=== PATIENT | male | born 1960 | race American Indian/Alaskan Native ===

== ENCOUNTER 2017-11-23 14:56 | Emergency (ER) | payer SELFPAY ==
[2017-11-23 15:06] VITALS: BP 159/90
--- NOTE | 2017-11-23 16:14 | Emergency Department Report ---
HPI - General Chief Complaint: Eye Problems Time Seen by Provider: 11/23/17 16:10 - HPI HPI: 57-year-old male presents with right eye cloudiness of the past 3 days. Patient 's history include a blood pressure but he has not been taking any medications. Patient denies any chest pain, shortness of breath, nausea, vomiting. There is no longer having any cloudiness at this point. ED Past Medical Hx - Past Medical History Previous Medical History?: No Hx Hypertension: No Hx CVA: No Hx Heart Attack/AMI: No - Surgical History Past Surgical History?: No - Social History Smoking Status: Current Every Day Smoker Substance Use Type: None - Medications Home Medications: Home Medications Medication Instructions Recorded Confirmed Last Taken Type amLODIPine [Norvasc] 10 mg PO DAILY #30 tab 11/23/17 Unknown Rx ED Review of Systems ROS: Stated complaint: BLURRED VISON Other details as noted in HPI Comment: All other systems reviewed and negative Eyes: other (cloundiness). denies: eye pain, eye discharge Cardiovascular: denies: chest pain, palpitations Physical Exam - Physical Exam Vital Signs: Vital Signs 11/23/17 15:03 Temperature 97.9 F Pulse Rate 78 Respiratory 18 Rate Blood Pressure 159/90 O2 Sat by Pulse 100 Oximetry Physical Exam: - Physical Exam Physical Exam: - General Limitations: No Limitations General appearance: alert, in no apparent distress. - Head Head exam: Present: atraumatic, normocephalic - Eye Eye exam: Present: Small cataracts bilateral eye - ENT ENT exam: Present: mucous membranes moist - Neck Neck exam: Present: normal inspection - Respiratory Respiratory exam: Present: normal lung sounds bilaterally. Absent: respiratory distress - Cardiovascular Cardiovascular Exam: Present: normal rhythm. Absent: systolic murmur, diastolic murmur, rubs, gallop - GI/Abdominal GI/Abdominal exam: Present: soft, normal bowel sounds - Extremities Exam Extremities exam: Present: normal inspection - Back Exam Back exam: Present: normal inspection - Neurological Exam Neurological exam: Present: alert, oriented X3 - Psychiatric Psychiatric exam: normal affect and mood - Skin Skin exam: Present: warm, dry, intact, normal color. Absent: rash ED Course Vital Signs 11/23/17 15:03 Temperature 97.9 F Pulse Rate 78 Respiratory 18 Rate Blood Pressure 159/90 O2 Sat by Pulse 100 Oximetry Critical care attestation.: If time is entered above; I have spent that time in minutes in the direct care of this critically ill patient, excluding procedure time. ED Disposition Clinical Impression: High blood pressure Qualifiers: Hypertension type: essential hypertension Qualified Code(s): I10 - Essential ( primary) hypertension Cataracts, both eyes Qualifiers: Cataract type: age-related Disposition: - TO HOME OR SELFCARE Is pt being admited?: No Does the pt Need Aspirin: No Condition: Stable Instructions: Cataracts (ED), Hypertension (ED) Prescriptions: amLODIPine [Norvasc] 10 mg PO DAILY #30 tab Referrals: PRIMARY CAREMD [Primary Care Provider] - 3-5 Days RORY UMANA MD [Staff Physician] - 3-5 Days
== END 2017-11-23 16:32 | disposition home or self-care (01) ==
LOC: ED 14:56
DX: H57.11 Ocular pain, right eye (principal); I10 Essential (primary) hypertension; F17.200 Nicotine dependence, unspecified, uncomplicated
CPT/HCPCS: 99282

== ENCOUNTER 2019-03-27 21:14 | Emergency (ER) | payer SELFPAY ==
--- NOTE | 2019-03-27 22:37 | Event Note ---
ED Screening Note Date of service: 03/27/19 Time: 22:35 ED Screening Note: 58 y o male presents with back pain,abd pain with dark urine x 4 days This initial assessment/diagnostic orders/clinical plan/treatment(s) is/are subject to change based on patients health status, clinical progression and re- assessment by fellow clinical providers in the ED. Further treatment and workup at subsequent clinical providers discretion. Patient/guardian urged not to elope from the ED as their condition may be serious if not clinically assessed and managed. Initial orders include: labs,ct abd
[2019-03-27 23:07] LABS: Basophils # (Auto) 0.1 K/mm3 (0.0-0.1); Basophils % (Auto) 1.2 % (0.0-1.8); Eosinophils # (Auto) 0.4 K/mm3 (0.0-0.4); Eosinophils % (Auto) 6.3 % (0.0-4.3); Hematocrit 41.3 % (35.5-45.6); Hemoglobin 14.1 gm/dl (11.8-15.2); Lymphocytes # (Auto) 2.7 K/mm3 (1.2-5.4); Lymphocytes % (Auto) 40.7 % (13.4-35.0); Mean Corpuscular HGB Conc 34 % (32-34); Mean Corpuscular Volume 87 fl (84-94); Monocytes # (Auto) 0.7 K/mm3 (0.0-0.8); Monocytes % (Auto) 9.7 % (0.0-7.3); Platelet Count 232 K/mm3 (140-440); Red Blood Count 4.73 M/mm3 (3.65-5.03)
[2019-03-27 23:17] LABS: INR 0.97 (0.87-1.13)
[2019-03-27 23:31] LABS: Alanine Aminotransferase 469 units/L (7-56); Albumin 4.2 g/dL (3.9-5); BUN/Creatinine Ratio 13; Bilirubin,Direct 7.3 mg/dL (0-0.2); Blood Urea Nitrogen 10 mg/dL (9-20); Calcium 9.8 mg/dL (8.4-10.2); Hemolysis Index 4
--- NOTE | 2019-03-27 23:50 | Emergency Department Report ---
ED Abdominal Pain HPI - General Chief Complaint: Abdominal Pain Stated Complaint: ABD PAIN Time Seen by Provider: 03/27/19 22:34 Source: patient Mode of arrival: Ambulatory Limitations: No Limitations - History of Present Illness Initial Comments: Mr. Lopez is a 58 yo male without significant past medical hx who presents with bilateral lower abdominal pain and dark urine for 2 weeks. Gradual onset of symptoms. No history of alcohol use. No history of hepatitis. He has noticed that is eyes have been yellow for the past 2 weeks. He works as a sprinkler truck driver. NO hx of chronic tylenol use. He has used Tylenol and Ibuprofen for pain over the last few days. Denies chronic abd pain or diarrhea. MD Complaint: abdominal pain -: Gradual, week(s) (2) Location: LLQ, RLQ Radiation: none Severity scale (0 -10): 10 Quality: aching Consistency: constant Improves With: nothing Worsens With: nothing Associated Symptoms: other (dark urine and jaundice) - Related Data Previous Rx's Medication Instructions Recorded Last Taken Type amLODIPine [Norvasc] 10 mg PO DAILY #30 tab 11/23/17 Unknown Rx Allergies Allergy/AdvReac Type Severity Reaction Status Date / Time No Known Allergies Allergy Unverified 11/23/17 15:03 ED Review of Systems ROS: Stated complaint: ABD PAIN Other details as noted in HPI Comment: All other systems reviewed and negative Constitutional: denies: fever, malaise Gastrointestinal: abdominal pain Genitourinary: other (dark urine) ED Past Medical Hx - Past Medical History Previous Medical History?: Yes Hx Hypertension: Yes Hx CVA: No Hx Heart Attack/AMI: No - Surgical History Past Surgical History?: No - Social History Smoking Status: Current Every Day Smoker Substance Use Type: None - Medications Home Medications: Home Medications Medication Instructions Recorded Confirmed Last Taken Type amLODIPine [Norvasc] 10 mg PO DAILY #30 tab 11/23/17 Unknown Rx ED Physical Exam - General Limitations: No Limitations General appearance: alert, in no apparent distress, other (alert no acute distress) - Head Head exam: Present: atraumatic, normocephalic - Eye Eye exam: Present: scleral icterus. Absent: conjunctival injection - ENT ENT exam: Present: mucous membranes moist - Neck Neck exam: Present: normal inspection, full ROM - Respiratory Respiratory exam: Present: normal lung sounds bilaterally. Absent: respiratory distress, wheezes, rales, rhonchi - Cardiovascular Cardiovascular Exam: Present: regular rate, normal rhythm, normal heart sounds. Absent: systolic murmur, diastolic murmur, rubs, gallop - GI/Abdominal GI/Abdominal exam: Present: soft, normal bowel sounds. Absent: distended, tenderness, guarding, rebound - Rectal Rectal exam: Present: deferred - Extremities Exam Extremities exam: Present: normal inspection - Back Exam Back exam: Present: normal inspection - Neurological Exam Neurological exam: Present: alert, oriented X3 - Psychiatric Psychiatric exam: Present: normal affect, normal mood - Skin Skin exam: Present: warm, dry, intact, normal color. Absent: rash ED Course Vital Signs 03/27/19 03/27/19 03/27/19 21:50 22:35 23:55 Temperature 98.6 F 98.6 F Pulse Rate 61 61 57 L Respiratory 20 20 15 Rate Blood Pressure 157/79 Blood Pressure 157/79 167/85 [Right] O2 Sat by Pulse 100 100 97 Oximetry 03/27/19 23:56 Temperature Pulse Rate Respiratory 15 Rate Blood Pressure Blood Pressure [Right] O2 Sat by Pulse 97 Oximetry ED Medical Decision Making - Lab Data Result diagrams: 03/27/19 22:40 03/27/19 22:40 Laboratory Results - last 24 hr 03/27/19 03/27/19 03/27/19 22:40 22:40 22:40 WBC 6.7 RBC 4.73 Hgb 14.1 Hct 41.3 MCV 87 MCH 30 MCHC 34 RDW 15.0 Plt Count 232 Lymph % (Auto) 40.7 H [place] % (Auto) 9.7 H Eos % (Auto) 6.3 H Baso % (Auto) 1.2 Lymph # 2.7 [place] # 0.7 Eos # 0.4 Baso # 0.1 Seg Neutrophils % 42.1 Seg Neutrophils # 2.8 PT 12.6 INR 0.97 Sodium 141 Potassium 4.2 Chloride 101.6 Carbon Dioxide 26 Anion Gap 18 BUN 10 Creatinine 0.8 Estimated GFR > 60 BUN/Creatinine Ratio 13 Glucose 92 Calcium 9.8 Total Bilirubin 8.80 H Direct Bilirubin 7.3 H Indirect Bilirubin 1.5 AST 238 H ALT 469 H Alkaline Phosphatase 244 H Total Protein 7.8 Albumin 4.2 Albumin/Globulin Ratio 1.2 Amylase 50 Lipase 31 Urine Bilirubin Urine RBC (Auto) 03/27/19 23:36 WBC RBC Hgb Hct MCV MCH MCHC RDW Plt Count Lymph % (Auto) [place] % (Auto) Eos % (Auto) Baso % (Auto) Lymph # [place] # Eos # Baso # Seg Neutrophils % Seg Neutrophils # PT INR Sodium Potassium Chloride Carbon Dioxide Anion Gap BUN Creatinine Estimated GFR BUN/Creatinine Ratio Glucose Calcium Total Bilirubin Direct Bilirubin Indirect Bilirubin AST ALT Alkaline Phosphatase Total Protein Albumin Albumin/Globulin Ratio Amylase Lipase Urine Bilirubin Mod Urine RBC (Auto) 3.0 - Radiology Data Radiology results: report reviewed CT abdomen and pelvis:Mild colitis involving the right and proximal transverse colon, unexplained biliary dilatation nephrolithiasis, left kidney cyst - Medical Decision Making Mr. Lopez presents with lower abdominal pain, dark urine and jaundice. W/U reveals direct hyperbilirubinemia. CT revealed biliary dilatation and colitis. Concern for biliary obstruction such as malignancy or cholelithiasis. With finding of colitis, consider inflammatory bowel disease such ulcerative colitis with associated PSC which is less likely at this age. DDX: alcoholic liver disease, viral infection, drug induced I have consulted GI Dr. Tariq who recommended MRCP. Admitted to hospitalist service. Critical care attestation.: If time is entered above; I have spent that time in minutes in the direct care of this critically ill patient, excluding procedure time. ED Disposition Clinical Impression: Jaundice, Colitis, Abdominal pain Disposition: OP ADMIT IP TO THIS HOSP Is pt being admited?: Yes Does the pt Need Aspirin: No Condition: Stable
--- NOTE | 2019-03-28 00:02 | Cat Scan Report ---
CT ABDOMEN AND PELVIS WITHOUT CONTRAST INDICATION: MAIN: Abdominal Pain. BACK PAIN. DARK URINE. CONTRAST: Without IV COMPARISON: None available. All CT scans at this location are performed using CT dose reduction for ALARA by means of automated e xposure control. FINDINGS: Lung bases are clear. No pneumoperitoneum is seen. No obvious gallstones are noted. Intrahe patic biliary dilatation is seen with the common hepatic duct and upper common bile duct measuring up to 8 mm. Slight intrahepatic dilatation is noted. No pancreatic mass is seen. No intraductal calculu s is obvious. Bilateral water density renal cysts are noted, greater on the right. In the mid left ki dney posteriorly a small hyperdense lesion is seen measuring only 5 mm which probably is a minimal hy perdense cyst. Minimal left nephrolithiasis is seen with a 1 mm calculus in the midportion. No eviden ce of obstruction is seen. No evidence of bowel obstruction is noted. The wall of the right colon thr ough the proximal transverse colon including the hepatic flexure shows a suggestion of mild edema tho ugh I do not see surrounding inflammation. No gas is seen within the wall. No portal venous gas is no gil. No mesenteric atherosclerotic changes are seen. No small bowel abnormalities are seen. Stomach i s distended with food. No free fluid is noted. Scattered small nodes in the retroperitoneum are not p athologically enlarged. IMPRESSION: 1. Suggestion of mild colitis involving the right and proximal transverse colon 2. Mild unexplained biliary dilatation. Suggest clinical correlation. 3. Minimal left nephrolithiasis without acute change seen 4. Probable small hyperdense cyst in the left kidney. Follow-up is suggested. Signer Name: Lloyd Posada MD Signed: 03/27/2019 11:58 PM Workstation Name: [id number]
[2019-03-28 00:20] LABS: Bilirubin,Urine MOD (Negative); Blood,Urine NEG (Negative); Color,Urine Amber (Yellow); Mucus,Urine 2+ /HPF; Protein,Urine <15 mg/dL mg/dL (Negative)
[2019-03-28] MEDS ORDERED: NORVASC PO ONE (00:28)
[2019-03-28] MEDS ORDERED: MORPHINE IV ONE (00:28)
[2019-03-28] MEDS ORDERED: NACL 0.9% 1000 ML 1,000 ML IV ONE (00:28)
[2019-03-28] MEDS ORDERED: ZOFRAN IV ONE (00:29)
[2019-03-28 00:39] LABS: Ictotest,Urine Positive (Negative)
[2019-03-28 01:14] VITALS: BP 165/87
== END 2019-03-28 01:36 | disposition left against medical advice (07) ==
LOC: ED 21:14
DX: K52.9 Noninfective gastroenteritis and colitis, unspecified (principal); R17 Unspecified jaundice; I10 Essential (primary) hypertension; F17.200 Nicotine dependence, unspecified, uncomplicated
CPT/HCPCS: 36415; 74176; 80048; 80076; 81001; 82150; 83690; 85025; 85610; 96361; 96374; 96375; 99284; J2270; J2405; J7030

== ENCOUNTER 2020-07-21 07:52 | Emergency (ER) | payer SELFPAY ==
[2020-07-21 08:07] VITALS: BP 134/75
[2020-07-21] MEDS ORDERED: ASPIRIN 325 MG TAB PO ONE (08:15)
[2020-07-21 08:41] LABS: Basophils % (Auto) 0.7 % (0.0-1.8); Eosinophils # (Auto) 0.1 K/mm3 (0.0-0.4); Eosinophils % (Auto) 2.2 % (0.0-4.3); Hematocrit 43.2 % (35.5-45.6); Hemoglobin 14.4 gm/dl (11.8-15.2); Lymphocytes # (Auto) 2.4 K/mm3 (1.2-5.4); Lymphocytes % (Auto) 36.5 % (13.4-35.0); Mean Corpuscular HGB Conc 33 % (32-34); Mean Corpuscular Volume 89 fl (84-94); Monocytes # (Auto) 0.8 K/mm3 (0.0-0.8); Monocytes % (Auto) 11.2 % (0.0-7.3); Platelet Count 220 K/mm3 (140-440); Red Blood Count 4.86 M/mm3 (3.65-5.03)
--- NOTE | 2020-07-21 08:45 | Emergency Department Report ---
Minor Respiratory - HPI Chief Complaint: Chest Pain Stated Complaint: CHEST PAIN Time Seen by Provider: 07/21/20 08:24 Duration: 2 weeks Pain Location: Nose, Chest Severity: mild Minor Respiratory: Yes Rhinorrhea, Yes Sore Throat, Yes Able to Tolerate Fluids, Yes Cough, No Ear Pain, No Sick Contacts, No Hemoptysis, No Chest Pain, No Shortness of Breath, No Fever Other History: Chief complaint: "I have a head cold. I feel in my chest.". HPI this is a 60-year-old male with history of tobacco dependence who presents with sinus congestion for 2 weeks as well as chest congestion. Patient has had a productive cough. At night he feels full in his chest when he lays flat. He denies fever. He denies wheezing. No shortness of breath. He works as a dump truck operator. He does not suspect exposure to COVID-19. Currently no pain. Only mild facial and chest congestion. Gradual onset. No radiation of discomfort. ED Review of Systems ROS: Stated complaint: CHEST PAIN Other details as noted in HPI Comment: All other systems reviewed and negative Constitutional: denies: fever, malaise Eyes: denies: as per HPI Respiratory: cough. denies: shortness of breath, wheezing Cardiovascular: denies: chest pain Gastrointestinal: denies: abdominal pain Musculoskeletal: denies: back pain ED Past Medical Hx - Past Medical History Previous Medical History?: Yes Hx Hypertension: No Hx CVA: No Hx Heart Attack/AMI: No Hx Congestive Heart Failure: No Hx Diabetes: No Hx Liver Disease: Yes (Increased LFTs from biliary obstruction) Hx Asthma: No Hx COPD: No - Surgical History Past Surgical History?: Yes Hx Cholecystectomy: Yes - Social History Smoking Status: Current Every Day Smoker Substance Use Type: None - Medications Home Medications: Home Medications Medication Instructions Recorded Confirmed Last Taken Type oxyCODONE /ACETAMINOPHEN [Percocet 1 tab PO Q6HR PRN #10 tablet 04/07/19 Unknown Rx 5/325] Docusate Sodium [Colace] 100 mg PO BID PRN #14 capsule 04/08/19 Unknown Rx lisinopriL [Zestril TAB] 20 mg PO QDAY #30 tablet 04/08/19 Unknown Rx polyethylene glycoL 3350 [Miralax 17 gm PO QDAY #10 packet 04/08/19 Unknown Rx 3350] DOXYCYCLINE Hyclate [Vibramycin 100 mg PO Q12HR 7 Days #14 capsule 07/21/20 Unknown Rx CAP] Loratadine 10 mg PO DAILY #7 capsule 07/21/20 Unknown Rx Prednisone [predniSONE 10 mg 10 mg PO .TAPER #1 tab.ds.pk 07/21/20 Unknown Rx (6-Day Pack, 21 Tabs)] Minor Respiratory Exam - Exam General: Vital signs noted. No distress. Alert and acting appropriately. HEENT: Yes Moist Mucous Membranes, Yes Rhinorrhea, No Pharyngeal Erythema, No Pharyngeal Exudates, No Conjuctival Injection, No Frontal Tenderness, No Maxilla ry Tenderness Ear: Neither TM Bulge, Neither TM Erythema, Neither EAC Pain, Neither EAC Discharge Neck: Yes Supple, No Adenopathy Lungs: Yes Good Air Exchange, No Wheezes, No Ronchi, No Stridor, No Cough, No Labored Respirations, No Retractions, No Use of Accessory Muscles, No Other Abnormal Lung Sounds Heart: Yes Regular, No Murmur Abdomen: Yes Normal Bowel Sounds, No Tenderness, No Peritoneal Signs Skin: No Rash, No Edema Neurologic: Alert and oriented, no deficits. Musculoskeletal: Unremarkable. ED Course Vital Signs 07/21/20 08:04 Temperature 98.4 F Pulse Rate 67 Respiratory 20 Rate Blood Pressure 134/75 [Right] O2 Sat by Pulse 96 Oximetry ED Medical Decision Making - Lab Data Result diagrams: 07/21/20 08:17 07/21/20 08:17 Laboratory Results - last 24 hr 07/21/20 07/21/20 08:17 08:17 WBC 6.7 RBC 4.86 Hgb 14.4 Hct 43.2 MCV 89 MCH 30 MCHC 33 RDW 14.0 Plt Count 220 Lymph % (Auto) 36.5 H [place] % (Auto) 11.2 H Eos % (Auto) 2.2 Baso % (Auto) 0.7 Lymph # (Auto) 2.4 [place] # (Auto) 0.8 Eos # (Auto) 0.1 Baso # (Auto) 0.0 Seg Neutrophils % 49.4 Seg Neutrophils # 3.3 Sodium 141 Potassium 4.1 Chloride 107.4 H Carbon Dioxide 27 Anion Gap 11 BUN 11 Creatinine 1.0 Estimated GFR > 60 BUN/Creatinine Ratio 11 Glucose 115 H Calcium 9.0 Troponin T < 0.010 - EKG Data -: EKG Interpreted by Me EKG shows normal: sinus rhythm, axis, intervals, QRS complexes, ST-T waves Rate: normal - EKG Data Interpretation: normal EKG 07/21/20 08:44 EKG obtained 0813 EKG interpreted by me Normal sinus rhythm normal rate normal axis normal intervals no ST elevation no ST-T signs of ischemia normal EKG rate 65 - Radiology Data Radiology results: report reviewed, image reviewed No acute findings according to radiology impression - Medical Decision Making Clinical impression: Viral syndrome versus sinusitis acute bronchitis. Considering patient's persistent symptoms for 2 weeks and tobacco abuse antibiotics are indicated. Patient prescribed loratadine, prednisone, doxycycline. CBC chemistry troponin within normal limits. Labs ordered according to hospital protocol. Critical care attestation.: If time is entered above; I have spent that time in minutes in the direct care of this critically ill patient, excluding procedure time. ED Disposition Clinical Impression: Sinusitis, Bronchitis, Tobacco dependence Disposition: - TO HOME OR SELFCARE Is pt being admited?: No Does the pt Need Aspirin: No Condition: Stable Instructions: Steps to Quit Smoking, [id number], Chronic Bronchitis (ED) Prescriptions: Loratadine 10 mg PO DAILY #7 capsule Prednisone [predniSONE 10 mg (6-Day Pack, 21 Tabs)] 10 mg PO .TAPER #1 tab.ds.pk DOXYCYCLINE Hyclate [Vibramycin CAP] 100 mg PO Q12HR 7 Days #14 capsule Referrals: RUMA SALAS MD [Staff Physician] - 3-5 Days Forms: Work/School Release Form(ED)
--- NOTE | 2020-07-21 08:56 | XRay Report ---
CHEST 1 VIEW 07/21/2020 7:37 AM INDICATION / CLINICAL INFORMATION: Chest Pain. COMPARISON: None available. FINDINGS: SUPPORT DEVICES: None. HEART / MEDIASTINUM: No significant abnormality. LUNGS / PLEURA: No significant pulmonary or pleural abnormality. No pneumothorax. ADDITIONAL FINDINGS: No significant additional findings. IMPRESSION: 1. No acute findings. Signer Name: Jordin Hui MD Signed: 07/21/2020 8:51 AM Workstation Name: [id number]
[2020-07-21 09:00] LABS: BUN/Creatinine Ratio 11; Blood Urea Nitrogen 11 mg/dL (9-20); Hemolysis Index 6
== END 2020-07-21 09:16 | disposition home or self-care (01) ==
LOC: ED 07:52
DX: J32.8 Other chronic sinusitis (principal); J40 Bronchitis, not specified as acute or chronic; F17.200 Nicotine dependence, unspecified, uncomplicated; Z90.49 Acquired absence of other specified parts of digestive tract; Z79.899 Other long term (current) drug therapy
CPT/HCPCS: 36415; 71045; 80048; 84484; 85025; 93005; 99283